=== PATIENT | female | born 2005 | race Caucasian/White ===

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

== ENCOUNTER 2024-08-19 08:54 | Day surgery (SDC) | payer OTHER, SELFPAY ==
[2024-08-19] VITALS (15 sets, daily range): BP systolic 87–111; BP diastolic 41–74; PULSE 57–84; RESP 14–16; TEMP 36.1–36.8; O2SAT 97–100; BMI 25.4
--- OUTSIDE RECORDS SUMMARY | 2024-08-19 08:58 | XMS_ITS | Clinical Summary ---
Author Organization [facility] Address [place], [place] [address] Care Team Providers Care Paper Testing Supervisor Name Role Phone Liu Charis Kamilla AUTOMOBILE ASSEMBLY SUPERVISOR Primary Care Provider [phone] Allergies No known active allergies Medications escitalopram oxalate (Lexapro) 5 mg tablet Take 5 mg by mouth once daily. Active hyoscyamine (Levsin) 0.125 mg tablet Take 0.125 mg by mouth every 4 hours. Active Active Problems Problem Noted Date Diagnosed Date Other irritable bowel syndrome 04/27/2024 Encounters Date Type Department Care Team Description 07/01/2024 Chart Update [facility] at [address] [address] Martín Samaniego MD Musculoskeletal Problem ([facility] being seen for Possible ACL Tear DOI: Summer 2023) 06/30/2024 5:30 PM BOWLING PIN REFINISHER Ancillary Procedure [facility] [id number] [place] [id number] 06/30/2024 4:45 PM BOWLING PIN REFINISHER Ancillary Procedure [facility] [address] [place] [address] 06/30/2024 Travel from Last 3 Months Immunizations Name Administration Dates Next Due DTP 05/10/2009, 6,2004,11/08,2004 HPV 9 (Gardasil 9) 02/29/2024,02/27/2023 Hepatitis A (Peds) 08/19/2006,11/12/2005 Hepatitis B (Peds) 05/09/2010, 5,2004,08/26 Hib Conjugate, Unspecified 05/14/2005,2004 ,2004 Influenza, IIV3 (Age >=3 years) 04/28/2011,08/21,06/13/2009 MMR 01/19/2008,05/14/2005 Meningococcal B 02/27/2023 Meningococcal Vaccine (Menactra) 02/03/2022,06/12 Pneumococcal Conjugate, Unsp ecified Formulation 05/14/2005,2004,2004,08/26 Pneumococcal conj 13-Valent (Prevnar 13) 05/14/2005,2004,2004,08/26 Pneumococcal conj 7-Valent (Prevnar 7) 1 ,2004,2004,08/26 Polio Virus, Unspecified 05/10/2009,09/2004,2004,08/26 Tdap 07/09/2017 Varicella Vaccine 05/10/2009,08/14/2005 Family History Medical History Relation Name Comments Good Health Father Good Health Mother Good Health Sister Relation Name Status Comments Father Mother Sister Social History Tobacco Use Types Packs/Day Years Used Date Smoking Tobacco: Never Smokeless Tobacco: Never Tobacco Cessation:Counseling Given: Not Answered Alcohol Use Standard Drinks/Week Comments Never 0 (1 standard drink = 0.6 oz pur e alcohol) [facility] Utilities Answer Date Recorded Do you have trouble paying f or utilities (for example, heat, electricity, water, phone)? Yes 04/27/2024 PHQ-2 Answer Date Recorded PHQ-2 TOTAL SCORE 0 04/27/2024 Social Connections Answer Date Recorded Do you often feel lonely or isolated from those around you? 0 04/27/2024 Financial Resource Strain Answer Date R ecorded Difficulty of Paying Living Expenses 3 04/27/2024 Difficulty of Paying Living Expenses Not on file 04/27/2024 Food Insecurity Answer Date Recorded Do you worry your food will run out before you are able to buy more? 1 04/27/2024 Transportation Needs Answer Date Record ed Does lack of transportation keep you from medica l appointments? 1 04/27/2024 Does lack of transportation keep you from work, meetings or getting things that you need? 1 04/27/2024 Housing Stability Answer Date Recorded What is your housing situation today? 1 04/27/2024 Comments Unknown Sex and Gender Information Value Date Recorded Sex Assigned at Not on file Legal Sex Female 1:51 PM CDT Gender Identity Not on file Sexual Orientation Not on file Obstetrics History Last Filed Vital Signs Vital Sign Reading Time Taken Comments Blood Pressure 96/63 04/27/2024 7:35 AM CDT Pulse 67 04/27/2024 7:34 AM CDT Temperature - - Respiratory Rate - - Oxygen Saturation 98% 04/27/2024 7:34 AM CDT Inhaled Oxygen Concentration - - Weight 66.2 kg (146 lb) 04/27/2024 7:34 AM CDT Height 165.1 cm (5' 5) 04/27/2024 7:34 AM CDT Body Mass Index 24.3 04/27/2024 7:34 AM CDT Plan of Treatment Health Maintenance Due Date Last Done Comments HIV for age 15-65 2019 Hepatitis C screening for age 18-79 2022 COVID-19 vaccine series ( season) 2024 01/14/2021, 12/24/2020 Influenza for age 9-49 04/10/2024 1, 08/21/2010, 06/13/2009 HPV series for age 9-26 (3 - 3-dose series) 05/23/2024 02/29/2024, 02/27/2023 BMI (ht and wt on same day) for age 18+ 04/27/2025 04/27/2024 Depression screening for age 12+ 04/27/2025 04/27/2024 Well Child Check for age 3-20 04/27/2025 04/27/2024 Tetanus booster 07/09/2027 07/09/2017 Pneumococcal series for age 6-49 Aged Out 05/14/2005, 05/14/2005, 05/14/2005, Additional history exists No longer eligible based on patient's age to complete this topic Tdap Completed 07/09/2017 Meningococcal series for age 11-21 Completed 02/03/2022, 07/09/2017 Procedures Procedure Name Priority Date/Time Associated Diagnosis Comments MR KNEE RIGHT WO Routine 06/30/2024 5:44 PM BOWLING PIN REFINISHER Chronic pain of right knee Knee instability, right XR KNEE 3 VIEWS RIGHT Routine 06/30/2024 5:02 PM BOWLING PIN REFINISHER Chronic pain of right knee Knee instability, right from Last 3 Months Results * MR KNEE RIGHT WO (06/30/2024 5:44 PM BOWLING PIN REFINISHER) Anatomical Region Laterality Modality KNEE R Magnetic Resonan ce 06/30/2024 5:44 PM BOWLING PIN REFINISHER Impressions 07/01/2024 7:15 AM BOWLING PIN REFINISHER 1. High-grade, likely complete, tear of the ACL which appears subacute or chronic. Mild anterior tibial translation. 2. Contusion of the posterior lateral tibial plateau. Narrative 07/01/2024 7:15 AM BOWLING PIN REFINISHER For Patients: As a result of the Cures Act, medical imaging exams and procedure reports are released immediately into your electronic medical record. You may view this report before your referring provider. If you have questions, please contact your health care provider. EXAM: MR KNEE RIGHT WO LOCATION: [facility] DATE: 06/30/2024 INDICATION: Chronic Pain Of Right Knee Chronic Pain Of Right Knee Knee Instability, Right COMPARISON: 06/30/2024 TECHNIQUE: Unenhanced. FINDINGS: MEDIAL COMPARTMENT: -Meniscus: Normal. -Cartilage: Normal. LATERAL COMPARTMENT: -Meniscus: Normal. -Cartilage: Normal. PATELLOFEMORAL COMPARTMENT: -Alignment: Patella midline. No subluxation or tilting. -Cartilage: Normal. CRUCIATE LIGAMENTS: -ACL: High-grade, likely complete, tear of the ACL involving the midportion (Series 3 image 12). Mild anterior tibial translation. -PCL: Intact. COLLATERAL LIGAMENTS: -Medial collateral ligament: Superficial and deep fibers are normal. -Lateral collateral ligament: Normal. POSTEROMEDIAL CORNER: -Distal semimembranosus tendon is normal. -Pes anserine tendons are normal. Posteromedial corner complex ligaments are intact. POSTEROLATERAL CORNER: -Popliteal tendon is intact. No tendinopathy. -Biceps femoris tendon and posterolateral corner complex ligaments are intact. EXTENSOR MECHANISM: -Quadriceps tendon: Normal. -Patellar tendon: Normal. -Patellofemoral ligaments and retinacula: Intact. JOINT: -No joint effusion or synovitis. BONES: -No fracture. -Edema in the posterior lateral tibial plateau (series 3 image 6) consistent with contusion. -No marrow replacing lesion. SOFT TISSUES: -No popliteal cyst. No acute muscular injury or soft tissue mass. Procedure Note Boy Tejeda MD - 07/01/2024 For Patients: As a result of the Cures Act, medical imagingexams and procedure reports are released immediately into your electronicmedical record. You may view this report before your referring provider.If you have questions, please contact your health care provider. EXAM: MR KNEE RIGHT WO LOCATION: [facility] DATE: 06/30/2024 INDICATION: Chronic Pain Of Right Knee Chronic Pain Of Right Knee KneeInstability, Right COMPARISON: 06/30/2024 TECHNIQUE: Unenhanced. FINDINGS: MEDIAL COMPARTMENT: -Meniscus: Normal. -Cartilage: Normal. LATERAL COMPARTMENT: -Meniscus: Normal. -Cartilage: Normal. PATELLOFEMORAL COMPARTMENT: -Alignment: Patella midline. No subluxation or tilting. -Cartilage: Normal. CRUCIATE LIGAMENTS: -ACL: High-grade, likely complete, tear of the ACL involving themidportion (Series 3 image 12). Mild anterior tibial translation. -PCL: Intact. COLLATERAL LIGAMENTS: -Medial collateral ligament: Superficial and deep fibers are normal. -Lateral collateral ligament: Normal. POSTEROMEDIAL CORNER: -Distal semimembranosus tendon is normal. -Pes anserine tendons are normal. Posteromedial corner complex ligamentsare intact. POSTEROLATERAL CORNER: -Popliteal tendon is intact. No tendinopathy. -Biceps femoris tendon and posterolateral corner complex ligaments areintact. EXTENSOR MECHANISM: -Quadriceps tendon: Normal. -Patellar tendon: Normal. -Patellofemoral ligaments and retinacula: Intact. JOINT: -No joint effusion or synovitis. BONES: -No fracture. -Edema in the posterior lateral tibial plateau (series 3 image 6)consistent with contusion. -No marrow replacing lesion. SOFT TISSUES: -No popliteal cyst. No acute muscular injury or soft tissue mass. IMPRESSION: 1. High-grade, likely complete, tear of the ACL which appears subacute orchronic. Mild anterior tibial translation. 2. Contusion of the posterior lateral tibial plateau. us Martín Samaniego MD MR Final Res ult * XR KNEE 3 VIEWS RIGHT (06/30/2024 5:02 PM BOWLING PIN REFINISHER) Anatomical Region Laterality Modality KNEES, KNEE R Computed Radiogr aphy 06/30/2024 5:02 PM BOWLING PIN REFINISHER Impressions 07/01/2024 6:01 AM BOWLING PIN REFINISHER Normal joint spaces and alignment. No fracture or joint effusion. Narrative 07/01/2024 6:01 AM BOWLING PIN REFINISHER For Patients: As a result of the Cures Act, medical imaging exams and procedure reports are released immediately into your electronic medical record. You may view this report before your referring provider. If you have questions, please contact your health care provider. EXAM: XR KNEE 3 VIEWS RIGHT LOCATION: [facility] DATE: 06/30/2024 INDICATION: Chronic Pain Of Right Knee Knee Instability, Right COMPARISON: MRI from 06/30/2024 Procedure Note Den Berrios MD - 07/01/2024 For Patients: As a result of the Cures Act, medical imagingexams and procedure reports are released immediately into your electronicmedical record. You may view this report before your referring provider.If you have questions, please contact your health care provider. EXAM: XR KNEE 3 VIEWS RIGHT LOCATION: [facility] DATE: 06/30/2024 INDICATION: Chronic Pain Of Right Knee Knee Instability, Right COMPARISON: MRI from 06/30/2024 IMPRESSION: Normal joint spaces and alignment. No fracture or joint effusion. us Martín Samaniego MD GENERAL IMAGING Final Res ult from Last 3 Months Insurance [facility] Care Teams Paper Testing Supervisor Relationship Specialty Start Date End Date Charis Hatfield NP [address] [place] [id number] PCP - General Nurse Practitioner - Family 04/27/24
[2024-08-19 09:19] LABS: Ur HCG Qualitative* Negative (Negative)
[2024-08-19] MEDS: SODIUM CHLORIDE 0.9 % (FLUSH) 10 ML SYRINGE IVF (09:30)
[2024-08-19] MEDS: LACTATED RINGERS 1000 ML 1,000 ML 100 ML IV (09:30)
--- NOTE | 2024-08-19 09:39 | W.PM.H&PU ---
History & Physical Update History & Physical Update H&P Reviewed and patient assessed: No changes noted
--- NOTE | 2024-08-19 09:46 | SUR.PREOP ---
TIME?OUT:?0949 PT/RN/MDA?VERIFICATION?OF?SURGICAL?SITE,?PROCEDURE,?AND?CONSENT OBTAINED?PRIOR?TO?INVASIVE?PROCEDURE.
[2024-08-19] MEDS: fentaNYL 100 MCG/2 ML inj IVP (09:50)
[2024-08-19] MEDS: MIDAZOLAM HCL 1 MG/ML inj IVP (09:50)
[2024-08-19] MEDS: CEFAZOLIN 2 GM in 0.9 % SODIUM CHLORIDE Mini-bag 100 ML IVPB (10:30)
--- NOTE | 2024-08-19 10:50 | P.ANES_ITS ---
Anesthesia Charges Start Date/Time Anesthesia Start Date: 08/19/24 Anesthesia Start Time: 10:22 Stop Date/Time Anesthesia Stop Date: 08/19/24 Anesthesia Stop Time: 12:45 Coding CPT Codes CPT Codes: ANESTH KNEE JOINT SURGERY - 21852 ([id number]) P1 - NORMAL HEALTHY PATIENT, QK - COMMERCIAL CREDIT HEAD 2-4 CNCRNT ANES PROC, QX - HOME APPRAISER SVMinesh W/ MED DIRECTION
--- NOTE | 2024-08-19 10:50 | W.ANESCHARGE ---
Anesthesia Charges Start Date/Time Anesthesia Start Date: 08/19/24 Anesthesia Start Time: 10:22 Stop Date/Time Anesthesia Stop Date: 08/19/24 Anesthesia Stop Time: 12:45 Coding CPT Codes CPT Codes: ANESTH KNEE JOINT SURGERY - 46420 ([id number]) P1 - NORMAL HEALTHY PATIENT, QK - UNIVERSITY ADMINISTRATOR 2-4 CNCRNT ANES PROC, QX - CANDLEMAKING LABORER SVMinesh W/ MED DIRECTION
--- NOTE | 2024-08-19 10:51 | P.NB_ITS ---
Nerve Block Nerve Block Time Seen by Provider: 09:55 Date Seen: 08/19/24 Type of block requested by surgeon for post-operative analgesia: popliteal Side: right Time out performed: Yes Verification of patient name: Yes Verification of date of : Yes Site marking: site marked Name of person performing procedure: Grabiel Continuous monitoring Was continuous monitoring of O2 sat, B/P, color television console monitor, recorded every 15 minutes?: Yes Procedure Checklist: sterile prep, needles and gloves Ultrasound guided. Images saved: Yes Medications given in 5ml increments after negative aspiration: Marcaine %: 0.25 mL: 15 and Exparel mL: 5 Needle gauge: 22 Patient tolerated procedure well: Yes Additional comments: Needle noted adjacent to nerve Block Charges Block Charge (with Pro Fee): Sciatic Nerve Use of Ultrasound Machine for Block: Yes- US Guidance/pain block
--- NOTE | 2024-08-19 10:52 | W.PM.NB ---
Nerve Block Nerve Block Time Seen by Provider: 09:57 Date Seen: 08/19/24 Type of block requested by surgeon for post-operative analgesia: adductor canal Side: right Time out performed: Yes Verification of patient name: Yes Verification of date of : Yes Site marking: site marked Name of person performing procedure: Grabiel Continuous monitoring Was continuous monitoring of O2 sat, B/P, compliance monitor, recorded every 15 minutes?: Yes Procedure Checklist: sterile prep, needles and gloves Ultrasound guided. Images saved: Yes Medications given in 5ml increments after negative aspiration: Marcaine %: 0.25 mL: 10 Needle gauge: 22 and Exparel mL: 5 Needle gauge: 22 Patient tolerated procedure well: Yes Block Charges Block Charge (with Pro Fee): Femoral Nerve Use of Ultrasound Machine for Block: Yes- US Guidance/pain block
[2024-08-19] MEDS: Heparin 30,000 units/30 ml 30000 UNIT TOPICAL (11:00)
--- NOTE | 2024-08-19 11:28 | CRLHL7_ITS ---
For Patients: As a result of the Cures Act, medical imaging exams and procedure reports are released immediately into your electronic medical record. You may view this report before your referring provider. If you have questions, please contact your health care provider. Indication: INTRAOP- RIGHT KNEE ANTERIOR CRUCIATE LIGAMENT Reconstruction Technique: One fluoroscopic image of the right knee. Fluoroscopic time 0.038 seconds. IMPRESSION: Fluoroscopic guidance for ACL reconstruction. Dictated by Julian Samson MD @ 08/19/2024 12:08:42 PM (Electronically Signed)
--- NOTE | 2024-08-19 12:19 | P.ORPRC_ITS ---
Procedure Note Date of procedure: 08/19/24 Procedure: PREOPERATIVE DIAGNOSIS: 1. Right knee ACL tear, acute POSTOPERATIVE DIAGNOSIS: 1. Right knee ACL tear, acute PROCEDURE: 1. Right knee ACL arthroscopic reconstruction with independent tunnel drilling (quad tendon autograft with internal brace) 2. Bone graft/bone marrow concentrate harvest from proximal tibia via separate incision (60ml aspirated) SURGEON: Willard Boudreaux M.D. APPRENTICE PATTERN MAKER: Boy Nix PA-C; Juvenal ESCOBAR. Of note, assistants were critical for this case to aid in patient positioning, knee manipulation, instrument exchange, graft preparation, camera assistance, bone graft harvest, and closure. ANESTHESIA: Spinal EBL: 20 mL TOURNIQUET: 90 minutes at 250 torr IMPLANTS: Arthrex tight rope femoral button; Arthrex tibial ABS button; Arthrex 4.75 mm Peek SwiveLock suture anchor (x1); Allosync Pure demineralized bone matrix COMPLICATIONS: None evident INDICATIONS: The patient is a pleasant 19yo Female. They experienced a right knee ACL disruption injury within the last month. MRI at that time confirmed ACL tear. The patient desires to remain physically active with cutting/pivoting type activitiies/sports. Accordingly, surgery was indicated. FINDINGS: Exam under anesthesia revealed positive Mague's showing grade 2 B. Positive pivot shift with a thud clunk. The diagnostic arthroscopy showed relatively healthy articular cartilage throughout all 3 compartments. The medi al and lateral menisci were intact and robust. The ACL was torn with positive empty wall sign. PCL was intact and robust. DESCRIPTION OF PROCEDURE: After a thorough discussion of risks, benefits, and alternatives, the patient was brought to the operating room and placed upon the operating table. Induction of anesthesia was undertaken as previously noted. 2g IV Ancef was administered within 1 hr of incision preoperatively. Appropriate time-out was performed identifying proper patient, site, and procedure. The right lower extremity was prepped and draped in the appropriate sterile fashion using ChloraPrep. Prior to tourniquet inflation, a small incision was made just lateral to tibial tubercle with a 15 blade scalpel. The Arthrex Oscar bone marrow aspiration trocar was then inserted and directed posterior and slightly proximal. 60 mL bone marrow aspiration was completed in a heparinized syringe. The volume was drawn to total 60ml of fluid for centrifugation. This was then spun in a centrifuge and bone marrow concentrate later utilized. This concentrate was mixed with Allosync Pure DBM and the autograft bone captured in the graft net device from tunnel drilling. This mixture was eventually placed into the sockets that were created for the ACL graft, as described below. After the bone marrow aspiration, the limb was exsanguinated and tourniquet inflated. A transverse incision was made approximately 1 cm proximal to the superior pole of the patella. We excised the subcutaneous fat sharply. The quad tendon was then visualized from the patellar attachment all the way more proximal towards its muscular transition. A 10mm double blade was utilized to sharply incise the quad tendon from the superior pole of patella as it was directed more proximally. This was done under direct visualization. We released it from the patella and placed it through the quad pro tendon harvester. This was turned in quarter turns slowly with proximal directed force. We passed this up approximately 65-68 mm of tendon. The tendon was then retrieved out the side hole and the quad pro cutting mechanism engaged with a robust quad tendon harvested of approximately that same target length. The quad was reapproximated with # 2-0 Stratafix in a running, locking fashion. Meanwhile, the graft was then prepared on the back table. Anterolateral and anteromedial portals were established with an 11 blade, and a diagnostic arthroscopy was performed. This identified the findings as noted above. Following the diagnostic arthroscopy the remaining ACL graft fibers were debrided with the shaver. Our attention was turned to ACL tunnel creation/preparation. Thus, a FlipCutter was utilized with a 10 mm graft measured and thus the same size hole created in both the femur (9.5 mm) and tibia (9 mm) with separate guides for independent tunnel drilling technique. After preparing the graft and drilling the tunnels, the button was passed out the lateral femoral cortex and confirmed to be flipped and apposed against the cortex with C-arm fluoroscopic imaging. After the button was passed, we utilized the autograft/allograft mixture which included autograft bone captured from the ACL tunnel drilling with the Arthrex Graft Net, the bone marrow autograft obtained from the proximal tibial plateau from the original incision over the proximal anterolateral tibia with the trocar, and the Allosync Pure demineralized bone matrix. This mixture of autograft and allograft was passed into the ACL tunnels with a beveled cannula under direct visualization. Then, the ACL graft was passed without difficulty first into the femoral socket and finally dunked into the tibial socket. After cycling the knee 35+ times with tension on the tibial sutures, we secured the tibial side with the tibial ABS button. After this, the internal brace suture tails (which had been passed through the ABS button) were secured with a PEEK SwiveLock suture anchor with the knee near full extension a slight posterior drawer applied being sure not to over tension this Internal Brace. The knee again was cycled and complete tension finalized on the femoral side again with the knee near full extension and a posterior drawer applied. A Mague test was performed again, and found to be stable. The graft was reprobed on the inside of the knee and again found to be taut and stable. The shaver was also utilized to ensure all remaining bony debris was evacuated from the medial and lateral compartments as well as suprapatellar pouch. At this stage, closure was completed with 2-0 Vicryl and 4-0 Monocryl to close the subcutaneous and subcuticular layers, respectively. Dressings were applied, tourniquet deflated, the patient awoken from anesthesia and transferred to the PACU in stable condition. PLAN: 1. Partial weightbear operative extremity. Crutch ambulation assistance PRN until quad control present at which time may advance to weightbear as tolerated if brace locked in full extension when she is more alert. 2. Ice, acetominophen and/or ibuprofen, and oxycodone for pain as needed. 3. Knee range of motion and quad sets/straight leg raise regularly, guided by physical therapy. 4. Follow up with PA visit in 1-2 weeks for a wound check.
--- NOTE | 2024-08-19 12:45 | P.ANES_ITS ---
Anesthesia Charges Start Date/Time Anesthesia Start Date: 08/19/24 Anesthesia Start Time: 10:22 Stop Date/Time Anesthesia Stop Date: 08/19/24 Anesthesia Stop Time: 12:45 Coding CPT Codes CPT Codes: ANESTH KNEE JOINT SURGERY - 50651 ([id number]) P1 - NORMAL HEALTHY PATIENT, QK - CAST SHELL GRINDER 2-4 CNCRNT ANES PROC, QX - POULTRY FEED SUPERVISOR SVMinesh W/ MED DIRECTION
--- NOTE | 2024-08-19 12:45 | W.ANESCHARGE ---
Anesthesia Charges Start Date/Time Anesthesia Start Date: 08/19/24 Anesthesia Start Time: 10:22 Stop Date/Time Anesthesia Stop Date: 08/19/24 Anesthesia Stop Time: 12:45 Coding CPT Codes CPT Codes: ANESTH KNEE JOINT SURGERY - 34551 ([id number]) P1 - NORMAL HEALTHY PATIENT, QK - PHYSICAL CHEMISTRY TEACHER 2-4 CNCRNT ANES PROC, QX - LAUNDRY ROUTEMAN SVMinesh W/ MED DIRECTION
--- NOTE | 2024-08-19 14:38 | REH.PT ---
Pt's personal axiliary crutches were fitted for her for home use. Instructed pt in gt level surfaces with 2 crutches, basic transfers and verbally instructed in stairs sequence and car transfers. Goals of PT were met. DC. No Charge.
== END 2024-08-19 14:40 | disposition home or self-care (01) ==
PROVIDERS: Anesthesiology; Visit Provider Orthopaedic Surgery Sports Medicine
PROC: (CPT 29888; principal; 2024-08-19 10:00)
DX: S83.511A Sprain of anterior cruciate ligament of right knee, initial encounter (principal); G89.18 Other acute postprocedural pain
CPT/HCPCS: 29888; 20900; 01400; 64445; 64447; 73560; 76000; 76942; 81025; C1713; J0665; J0666; J0690; J1644; J2250; J2704; J3010; J7120; L1833; Q4125

== ENCOUNTER 2024-12-07 16:15 | Outpatient (RCR) | payer OTHER, SELFPAY | END 2025-01-04 13:18 | disposition home or self-care (01) | PROVIDERS: Visit Provider Orthopaedic Surgery Sports Medicine | DX: Z48.89 Encounter for other specified surgical aftercare (principal); Z51.89 Encounter for other specified aftercare | CPT/HCPCS: 97110; 97161 ==